=== PATIENT | female | born 1985 | race Hispanic/Latino ===

== ENCOUNTER 2022-05-23 00:37 | Emergency (ER) | payer OTHER ==
[~2022-05-23] VITALS: Ht 152.4 cm; Wt 63.5 kg
[2022-05-23] MEDS ORDERED: ONDANSETRON 4MG INJ ONE (00:55)
[2022-05-23] MEDS ORDERED: ONDANSETRON 4MG INJ IVP ONE (01:00)
[2022-05-23 01:09] LABS: BASOPHILS % (AUTO) 0.4 % (0.0-5.0); EOSINOPHILS % (AUTO) 0.2 % (0.0-8.0); HEMATOCRIT 45.7 % (36-48); LYMPHOCYTES % (AUTO) 11.4 % (21.0-51.0); MEAN CORPUSCULAR HEMOGLOBIN 31.5 pg (27.0-33.0); MEAN CORPUSCULAR HGB CONC 34.8 g/dL (32.0-36.0); MEAN CORPUSCULAR VOLUME 90.7 fL (79-99); MONOCYTES % (AUTO) 5.4 % (3.0-13.0); NEUTROPHILS % (AUTO) 82.2 % (40.0-77.0); PLATELET COUNT (AUTO) 296 K/uL (130-400); RED BLOOD CELL COUNT(AUTO) 5.04 MIL/uL (4.00-5.50); RED CELL DISTRIBUTION WIDTH 12.8 % (11.0-15.5); WHITE BLOOD COUNT (AUTO) 9.2 K/uL (4.8-10.8)
[2022-05-23 01:11] LABS: APPEARANCE,URINE CLEAR (CLEAR); BILIRUBIN,URINE NEGATIVE (NEGATIVE); COLOR,URINE YELLOW (YELLOW); GLUCOSE, URINE (UA) NEGATIVE (NEGATIVE); KETONES,URINE 150 mg/dL (NEGATIVE); LEUKOCYTE ESTERASE ,URINE NEGATIVE Leu/uL (NEGATIVE); NITRATE,URINE NEGATIVE (NEGATIVE); OCCULT BLOOD,URINE NEGATIVE (NEGATIVE); PH,URINE 5.5 (5.0-8.0); PROTEIN,URINE 30 mg/dL (NEGATIVE); UROBILINOGEN,URINE 0.2 mg/dL (0.2-1.0)
[2022-05-23 01:13] LABS: MUCUS,URINE RARE LPF (None Seen); RBC,URINE 0-1 /HPF (0-1); SQUAMOUS EPITHELIAL CELL,UR FEW /HPF (0-2); WBC,URINE 0-1 /HPF (0-1)
[2022-05-23 01:14] LABS: AMPHET/METH SCREEN,URINE NEGATIVE (NEGATIVE); BARBITURATE SCREEN, URINE NEGATIVE (NEGATIVE); BENZODIAZEPINES SCREEN,URINE NEGATIVE (NEGATIVE); COCAINE SCREEN,URINE NEGATIVE (NEGATIVE); HCG,QUALITATIVE URINE NEGATIVE (NEGATIVE)
[2022-05-23 01:15] LABS: CANNABINOID SCREEN,URINE POSITIVE (NEGATIVE); PHENCYCLIDINE SCREEN,URINE NEGATIVE (NEGATIVE)
[2022-05-23 01:18] LABS: CREATININE 0.8 mg/dL (0.5-1.5); POTASSIUM 3.7 mmol/L (3.5-5.1)
[2022-05-23 01:22] LABS: ALBUMIN 4.4 g/dL (3.5-5.0); TOTAL PROTEIN, SERUM 8.1 g/dL (6.0-8.3)
[2022-05-23] MEDS ORDERED: PROMETHAZINE HCL 25 MG/ML 1ML AMPULE IM ONE (02:00)
[2022-05-23] MEDS ORDERED: 0.9%NACL 1000ML 1,000 ML IV ONE (02:00)
[2022-05-23] MEDS ORDERED: MORPHINE 4 MG SYG IVP ONE (02:00)
[2022-05-23 03:31] VITALS: BP 134/84
[2022-05-23] MEDS ORDERED: PANT40TA PO (03:54)
[2022-05-23] MEDS ORDERED: ONDA4TAB10 PO (03:54)
== END 2022-05-23 04:04 | disposition home or self-care (01) ==
LOC: EDH 00:37
DX: K29.00 Acute gastritis without bleeding (principal)
CPT/HCPCS: 99285; 74176; 96374; 96361; 96375; 80053; 80305; 85025; 81025; 36415; 96372; 81001; J7030; J2550; J2405; J2270